=== PATIENT | male | born 1985 | race Caucasian/White ===

== ENCOUNTER 2017-09-13 11:42 | Emergency (ER) | payer BC ==
--- NOTE | 2017-09-13 12:55 | UC ---
Respiratory Complaint HPI - HPI Summary HPI Summary: 31 year old male with cough. Day 8 or more of sinus pressure. since last pt c/o painful, tight cough, fatigue, body aches and no energy. severe constant pain in sinus cavities [ End ] - History of Current Complaint Stated Complaint: COUGH Time Seen by Provider: 09/13/17 12:52 Hx Obtained From: Patient Onset/Duration: Gradual Onset Timing: Constant Severity Initially: Mild Severity Currently: Moderate Character: Cough: Productive Aggravating Factors: Nothing Alleviating Factors: Nothing Associated Signs And Symptoms: Positive: URI, Nasal Congestion - Allergies/Home Medications Allergies/Adverse Reactions: Allergies Allergy/AdvReac Type Severity Reaction Status Date / Time No Known Allergies Allergy Verified 09/13/17 13:00 PMH/Surg Hx/FS Hx/Imm Hx Previously Healthy: Yes - Family History Known Family History: Positive: None - Social History Occupation: Employed Full-time Lives: With Family Alcohol Use: Rare Review of Systems Constitutional: Fatigue ENT: Sore Throat, Ear Ache, Nasal Discharge, Sinus Congestion, Sinus Pain/ Tenderness Respiratory: Cough Is Patient Immunocompromised?: No All Other Systems Reviewed And Are Negative: Yes Physical Exam Triage Information Reviewed: Yes Appearance: Well-Appearing, No Pain Distress, Well-Nourished Vital Signs Reviewed: Yes Eye Exam: Normal ENT Exam: Normal ENT: Positive: Pharynx normal, Nasal congestion, Nasal drainage, TM dull, Sinus tenderness Dental Exam: Normal Neck exam: Normal Neck: Positive: 1 Respiratory Exam: Normal Cardiovascular Exam: Normal Musculoskeletal Exam: Normal Neurological Exam: Normal Psychological Exam: Normal Skin Exam: Normal Respiratory Course/Dx - Differential Dx/Diagnosis Differential Diagnosis/HQI/PQRI: Bronchitis, Laryngitis, Lower Resp Infection, Sinusitis Provider Diagnoses: Sinus infection. Elevated Bp without dx of hypertension due to current illness. Discharge - Discharge Plan Condition: Good Disposition: HOME Prescriptions: Amoxicillin/Clavulanate TAB* [Augmentin TAB 875*] 875 mg PO BID #20 tab Patient Education Materials: Sinusitis (ED), Hypertension (ED) Referrals: No Primary Care Phys,NOPCP [Primary Care Provider] - 1 Week (For follow up for infection and elevated blood pressure ) Additional Instructions: Your Blood pressure was elevated today and it is advised to establish care with a PCP to have this follow up on .
[2017-09-13 12:58] VITALS: BP 159/97
== END 2017-09-13 13:35 | disposition home or self-care (01) ==
LOC: UCCORT 11:42
DX: J32.9 Chronic sinusitis, unspecified (principal); R03.0 Elevated blood-pressure reading, without diagnosis of hypertension
CPT/HCPCS: 99202; G0463